=== PATIENT | female | born 1985 | race Caucasian/White ===

== ENCOUNTER 2016-10-06 09:49 | Emergency (ER) | payer SELFPAY ==
[~2016-10-06] VITALS: Ht 154.9 cm; Wt 70.0 kg
[~2016-10-06 09:49] MED LIST: IBUP600 PO; OXYC1SOL5 PO; PRENCAP6 PO
[2016-10-06 09:51] VITALS: BP 100/72; PULSE 87; RESP 15; TEMP 98.2; O2SAT 98
[2016-10-06] MEDS ORDERED: PENI500T PO (10:11)
[2016-10-06] MEDS ORDERED: TRAM50TA PO (10:11)
--- NOTE | 2016-10-06 10:13 | PD ---
HPI Chief Complaint: Oral / Dental Pain or Problem Time Seen by Provider: 09:59 Travel History International Travel<30 days: No Contact w/Intl Traveler<30days: No Traveled to known affect area: No History of Present Illness HPI This patient complains of dental pain. Has a cracked tooth. Has no dentist. No injury. No fever. Symptoms severity is moderate PFSH Past Medical History Medical History: Denies Significant Hx Cardiovascular Problems: No Diminished Hearing: No Gastrointestinal Disorders: Yes (GALL STONES) Genitourinary: No Headaches: Yes Musculoskeletal: No Neurologic: No Reproductive: No Respiratory: No ?: Not LMP: 10/04/2016 : 2 Para: 1 Miscarriage: 0 : 0 Past Surgical History Section: Yes Cholecystectomy: Yes Genitourinary Surgery: Yes (BLADDER SURGERY) Other Surgery: Yes () Social History Alcohol Use: No Tobacco Use: Yes (04/30 PPD) Substance Use: No Allergies-Medications (Allergen,Severity, Reaction): Coded Allergies: Dilaudid (Verified Adverse Reaction, Severe, SEVERE PROJECTILE EMESIS, 03/14) Reported Meds & Prescriptions Reported Meds & Active Scripts Active No Active Prescriptions or Reported Medications Review of Systems General / Constitutional: No: Fever HENT: No: Headaches Cardiovascular: No: Chest Pain or Discomfort Respiratory: No: Cough Physical Exam Narrative SKIN: Focused skin assessment reveals no rash or ulcers. Skin is warm and dry. Palpation shows no induration or nodules. Psych: Normal mood and affect. Normal insight and judgment. Throat: Has pain at tooth #31. No gingival erythema Data Data Last Documented VS Vital Signs Date Time Temp Pulse Resp B/P Pulse Ox O2 Delivery O2 Flow Rate FiO2 10/06/16 09:51 98.2 87 15 100/72 98 MDM Medical Decision Making Medical Screen Exam Complete: Yes Emergency Medical Condition: Yes Medical Record Reviewed: Yes Differential Diagnosis Dental cavity, gingivitis, dental pain Narrative Course I have reviewed the patient's electronic medical record. I wrote her some penicillin and tramadol for tooth pain Recommending dental follow-up Diagnosis Primary Impression: Pain, dental Additional Instructions: The patient was advised to follow up with dentist and return if they worsen. The patient was warned about potential sedation for the medications they will receive on prescription. Med/Other Pt SpecificInfo: Prescription(s) given Scripts Penicillin V Potassium 500 Mg [id number] Mg PO Q8H #20 TAB Ref 0 Prov:Ludwig Griffin MD 10/06/16 Tramadol 50 Mg Tab50 Mg PO Q6H PRN (PAIN) #20 TAB Ref 0 Prov:Ludwig Griffin MD 10/06/16 Disposition: 01 DISCHARGE HOME Condition: Stable Ludwig Griffin MD Oct 06, 2016 10:13
== END 2016-10-06 10:28 | disposition home or self-care (01) ==
LOC: PHEFT 09:49
DX: K08.89 Other specified disorders of teeth and supporting structures (principal); F17.210 Nicotine dependence, cigarettes, uncomplicated
CPT/HCPCS: 99284

== ENCOUNTER 2017-04-28 10:38 | Emergency (ER) | payer SELFPAY ==
[~2017-04-28] VITALS: Ht 154.9 cm; Wt 68.0 kg
[~2017-04-28 10:38] MED LIST changes: -IBUP600 PO; -OXYC1SOL5 PO; +PENI500T PO; -PRENCAP6 PO; +TRAM50TA PO
[2017-04-28 10:41] VITALS: BP 119/65; PULSE 90; RESP 18; TEMP 97.8; O2SAT 99
[2017-04-28] MEDS ORDERED: AMOX875T PO (10:48)
[2017-04-28] MEDS ORDERED: FLUT1SPR5 EACH NARE (10:48)
[2017-04-28] MEDS ORDERED: VENTAER INH (10:48)
--- NOTE | 2017-04-28 10:55 | PD ---
HPI Chief Complaint: Cold / Flu Symptoms Time Seen by Provider: 10:44 Travel History International Travel<30 days: No Contact w/Intl Traveler<30days: No Traveled to known affect area: No History of Present Illness HPI 31-year-old female presents with almost one week of increasing upper respiratory infection symptoms including sinus congestion, headache, postnasal drip, ear congestion, sore throat, and cough. She states mild wheezing at night. Patient states no significant fever or chills. No nausea vomiting or diarrhea. Headache pain is about a 5 out of 10. Headache is localized to the frontal sinuses. Patient denies significant shortness of breath or productive cough. Patient has needed inhalers in the past, but not for many years. She has been exposed to multiple infectious contacts in the home. She has allergies to hydromorphone. PFSH Past Medical History Cardiovascular Problems: No Diminished Hearing: No Gastrointestinal Disorders: Yes (GALL STONES) Genitourinary: No Headaches: Yes Musculoskeletal: No Neurologic: No Reproductive: No Respiratory: No ?: Not LMP: Mar : 2 Para: 1 Miscarriage: 0 : 0 Past Surgical History Section: Yes Cholecystectomy: Yes Genitourinary Surgery: Yes (BLADDER SURGERY) Other Surgery: Yes () Social History Alcohol Use: No Tobacco Use: Yes (04/30 PPD) Substance Use: No Allergies-Medications (Allergen,Severity, Reaction): Coded Allergies: hydromorphone (Unverified Adverse Reaction, Severe, SEVERE PROJECTILE EMESIS, 12/10/16) Reported Meds & Prescriptions Reported Meds & Active Scripts Active Penicillin V Potassium 500 Mg Tab 500 Mg PO Q8H Tramadol (Tramadol HCl) 50 Mg Tab 50 Mg PO Q6H PRN Review of Systems Except as stated in HPI: all other systems reviewed are Neg General / Constitutional: Positive: Chills, No: Fever Eyes: No: Diploplia, Blurred Vision, Photophobia, Drainage, Redness, Visual changes HENT: Positive: Headaches, Sore Throat, Rhinitis, Rhinorrhea, Congestion, Earache, No: Vertigo, Lightheadedness, Nosebleed, Neck Stiffness, Neck Pain, Masses, Gingival Bleeding, Dental Difficulties, Ear Discharge Cardiovascular: No: Chest Pain or Discomfort Respiratory: Positive: Cough, Wheezing, Sneezing, No: Shortness of Breath Gastrointestinal: No: Nausea, Vomiting, Diarrhea, Abdominal Pain Genitourinary: No: Dysuria Musculoskeletal: No: Pain Skin: No Rash Neurologic: No: Weakness Psychiatric: No: Depression Endocrine: No: Polydipsia Hematologic/Lymphatic: No: Easy Bruising Physical Exam Narrative GENERAL: Patient appears ill but not septic. SKIN: Warm and dry. Normal color. Normal turgor. HEAD: Atraumatic. Normocephalic. Positive sinus tenderness to palpation in both frontal maxillary sinuses. EYES: Pupils equal and round. No scleral icterus. No injection or drainage. ENT: No nasal bleeding or discharge. Mucous membranes pink and moist. Posterior pharynx is mildly erythematous with mild swelling and postnasal drip noted. TMs are dull bilaterally but no significant injection is noted. NECK: Trachea midline. Supple nontender without significant lymphadenopathy. CARDIOVASCULAR: Regular rate and rhythm. RESPIRATORY: No accessory muscle use. Coarse breath sounds throughout to auscultation. Breath sounds equal bilaterally. GASTROINTESTINAL: Abdomen soft, non-tender, nondistended. Hepatic and splenic margins not palpable. MUSCULOSKELETAL: Extremities without clubbing, cyanosis, or edema. No obvious deformities. NEUROLOGICAL: Awake and alert. No obvious cranial nerve deficits. Motor grossly within normal limits. Five out of 5 muscle strength in the arms and legs. Normal speech. PSYCHIATRIC: Appropriate mood and affect; insight and judgment normal. Data Data Last Documented VS Vital Signs Date Time Temp Pulse Resp B/P (MAP) Pulse Ox O2 Delivery O2 Flow Rate FiO2 04/28/17 10:41 97.8 90 18 119/65 (83) 99 Room Air MDM Medical Decision Making Medical Screen Exam Complete: Yes Emergency Medical Condition: Yes Differential Diagnosis Upper respiratory infection. Sinusitis. Bronchitis. Narrative Course Patient is felt to have sinusitis. She is treated with amoxicillin 875 twice a day 10 days. Patient is placed on Flonase nasal spray 2 sprays each nostril daily. Patient is given albuterol metered-dose inhaler, 2 puffs every 4-6 hours when necessary. Patient is encouraged to quit smoking immediately. Patient will follow-up with primary care physician as needed. Diagnosis Primary Impression: Acute non-recurrent pansinusitis Referrals: [facility] Patient Instructions: General Instructions, Sinusitis (ED) Additional Instructions: Patient is felt to have sinusitis. She is treated with amoxicillin 875 twice a day 10 days. Patient is placed on Flonase nasal spray 2 sprays each nostril daily. Patient is given albuterol metered-dose inhaler, 2 puffs every 4-6 hours when necessary. Patient is encouraged to quit smoking immediately. Patient will follow-up with primary care physician as needed. Med/Other Pt SpecificInfo: Prescription(s) given Scripts Albuterol 18 GM Inh (Ventolin Hfa 18 GM Inh) 90 Mcg/Act Aer 2 PUFF INH Q4-6H Y for SHORTNESS OF BREATH, #1 INHALER 0 Refills Prov: Nabil Rothman MD 04/28/17 Fluticasone Nasal [place] (Flonase Nasal [place]) 50 Mcg/Act [place] 100 MCG EACH NARE BID for Allergies, #1 BOTTLE 0 Refills Prov: Nabil Rothman MD 04/28/17 Amoxicillin (Amoxicillin) 875 Mg Tab 875 MG PO BID for Infection, #20 TAB 0 Refills Prov: Nabil Rothman MD 04/28/17 Disposition: 01 DISCHARGE HOME Condition: Stable Tobias Orona Apr 28, 2017 10:55
== END 2017-04-28 11:02 | disposition home or self-care (01) ==
LOC: NEPK 10:38
DX: J01.40 Acute pansinusitis, unspecified (principal); F17.200 Nicotine dependence, unspecified, uncomplicated
CPT/HCPCS: 99284

== ENCOUNTER 2017-06-06 18:24 | Emergency (ER) | payer SELFPAY ==
[~2017-06-06] VITALS: Ht 154.9 cm; Wt 68.0 kg
[~2017-06-06 18:24] MED LIST changes: +AMOX875T PO; +FLUT1SPR5 EACH NARE; +VENTAER INH
[2017-06-06 18:26] VITALS: BP 143/62; PULSE 86; RESP 14; TEMP 97.6; O2SAT 100
[2017-06-06] MEDS ORDERED: ALPR.25 PO (20:09)
--- NOTE | 2017-06-06 20:09 | PD ---
HPI Chief Complaint: Medical Clearance Time Seen by Provider: 19:48 Travel History International Travel<30 days: No Contact w/Intl Traveler<30days: No Traveled to known affect area: No History of Present Illness HPI Patient is a 32-year-old female presenting to the emergency department due to possible exposure to HIV. Patient states she was notified by the health department at 1645 this afternoon stating that a partner she h was listed as a sexual contact of someone that was diagnosed with HIV. Patient states that she has been with her current partner for 7 months, last partner before that was a year ago. Other than being extremely anxious, patient has no physical complaints at this time. PFSH Past Medical History Cardiovascular Problems: No Diminished Hearing: No Gastrointestinal Disorders: Yes (GALL STONES) Genitourinary: No Headaches: Yes Musculoskeletal: No Neurologic: No Reproductive: No Respiratory: No ?: Not LMP: CURRENTLY ON PERIOD : 2 Para: 1 Miscarriage: 0 : 0 Past Surgical History Section: Yes Cholecystectomy: Yes Genitourinary Surgery: Yes (BLADDER SURGERY) Other Surgery: Yes () Social History Alcohol Use: No Tobacco Use: Yes (04/30 PPD) Substance Use: No Allergies-Medications (Allergen,Severity, Reaction): Coded Allergies: hydromorphone (Unverified Adverse Reaction, Severe, SEVERE PROJECTILE EMESIS, 12/10/16) Reported Meds & Prescriptions Reported Meds & Active Scripts Active Review of Systems Except as stated in HPI: all other systems reviewed are Neg Psychiatric: Positive: Anxiety Physical Exam Narrative GENERAL: Well-developed, well-nourished, alert female. Presenting in no acute distress. SKIN: Warm and dry. HEAD: Normocephalic. EYES: No scleral icterus. No injection or drainage. NECK: Supple, trachea midline. No JVD or lymphadenopathy. CARDIOVASCULAR: Regular rate and rhythm without murmurs, gallops, or rubs. RESPIRATORY: Breath sounds equal bilaterally. No accessory muscle use. GASTROINTESTINAL: Abdomen soft, non-tender, nondistended. MUSCULOSKELETAL: No cyanosis, or edema. BACK: Nontender without obvious deformity. No CVA tenderness. Data Data Last Documented VS Vital Signs Date Time Temp Pulse Resp B/P (MAP) Pulse Ox O2 Delivery O2 Flow Rate FiO2 06/06/17 18:26 97.6 86 14 143/62 (89) 100 Orders Orders Hiv Antibody Screen (06/06/17 19:54) Hepatitis Profile (06/06/17 19:54) MDM Medical Decision Making Medical Screen Exam Complete: Yes Emergency Medical Condition: Yes Interpretation(s) Vital Signs Date Time Temp Pulse Resp B/P (MAP) Pulse Ox O2 Delivery O2 Flow Rate FiO2 06/06/17 18:26 97.6 86 14 143/62 (89) 100 Differential Diagnosis Exposure versus medical screening versus other Narrative Course Patient is a 32-year-old female presenting due to possible exposure to HIV through a previous partner. Patient's vital signs are stable. At this time we will obtain labs for HIV and hepatitis panel. Patient was advised that labs will not be available/resolved for several days. Patient is otherwise well- appearing, she understands. She is advised to follow-up with the health department on Friday. Patient was advised to return to emergency department any worsening symptoms. Patient stable for discharge. Diagnosis Primary Impression: Exposure to HIV Additional Impression: Anxiety about health Referrals: [facility] Dept. 3 days Patient Instructions: General Instructions, HIV Transmission (ED) Additional Instructions: Follow up with [facility] department Return to emergency department for any new or worsening symptoms Med/Other Pt SpecificInfo: Prescription(s) given Scripts Alprazolam (Xanax) 0.25 Mg Tab 0.25 MG PO Q6H Y for ANXIETY, #10 TAB 0 Refills Prov: Jyoti Bailey 06/06/17 Disposition: 01 DISCHARGE HOME Condition: Stable Jyoti Bailey Jun 06, 2017 20:09
[2017-06-09 16:07] LABS: HEPATITIS A AB IGM NEGATIVE (NEGATIVE); HEPATITIS B CORE AB IGM NEGATIVE (NEGATIVE); HEPATITIS B SURFACE ANTIGEN NEGATIVE (NEGATIVE); HEPATITIS C AB IgG NEGATIVE (NEGATIVE)
== END 2017-06-06 20:20 | disposition home or self-care (01) ==
LOC: NEPD 18:24
DX: Z20.6 Contact with and (suspected) exposure to human immunodeficiency virus [HIV] (principal); F41.9 Anxiety disorder, unspecified; F17.200 Nicotine dependence, unspecified, uncomplicated
CPT/HCPCS: 80074; 86703; 99283